=== PATIENT | male | born 1955 | race Caucasian/White ===

== ENCOUNTER 2016-04-30 11:00 | Outpatient (RCR) | payer OTHER | END 2016-05-05 | disposition home or self-care (01) | LOC: M OUTALCOH 11:00 | PROVIDERS: ATTEND Psychiatry & Neurology Psychiatry | DX: F10.10 Alcohol abuse, uncomplicated (principal) ==

== ENCOUNTER 2016-06-01 08:45 | Outpatient (RCR) | payer MEDICARE, OTHER | END 2016-06-02 | LOC: M OUTALCOH 08:45 | PROVIDERS: ATTEND Psychiatry & Neurology Psychiatry | DX: F10.10 Alcohol abuse, uncomplicated (principal) ==

== ENCOUNTER → 2016-07-03 | Outpatient (RCR) | payer OTHER | LOC: M OUTALCOH 06-03 10:49 | PROVIDERS: ATTEND Psychiatry & Neurology Psychiatry | DX: F10.10 Alcohol abuse, uncomplicated (principal) ==

== ENCOUNTER → 2017-06-15 | Outpatient (CLI) | payer MEDICARE, OTHER ==
[2017-06-15 18:16] LABS: HEMATOCRIT 42.3 % (42.0-52.0); HEMOGLOBIN 14.4 g/dl (14.0-18.0); MEAN CORPUSCULAR HEMOGLOBIN 34.5 pg (27.0-33.0); MEAN CORPUSCULAR VOLUME 101.4 fl (80.0-96.0); RED BLOOD COUNT 4.17 10^6/uL (4.30-6.10); RED CELL DISTRIBUTION WIDTH 12.5 % (11.5-14.5); WHITE BLOOD COUNT 4.6 10^3/uL (4.0-10.0)
[2017-06-15 18:20] LABS: VITAMIN B12 LEVEL 580 PG/ML (247-911)
[2017-06-15 18:27] LABS: APPEARANCE, URINE HAZY (CLEAR); BACTERIA, URINE AUTO 2+ (NEGATIVE); BILIRUBIN, URINE AUTO NEGATIVE (NEGATIVE); BLOOD, URINE BLOOD NEGATIVE (NEGATIVE); COLOR, URINE AMBER (YELLOW); GLUCOSE, URINE (UA) AUTO NEGATIVE (NEGATIVE); KETONE, URINE AUTO NEGATIVE (NEGATIVE); LEUKOCYTE ESTERASE, URINE AUTO 3+ (NEGATIVE); MUCUS, URINE MODERATE (NEGATIVE); NITRITE, URINE AUTO NEGATIVE (NEGATIVE); PROTEIN, URINE AUTO 1+ mg/dL (NEGATIVE); RBC, URINE AUTO 2 /HPF (0-3); SPECIFIC GRAVITY URINE AUTO 1.023 (1.002-1.035); SQUAMOUS EPITHELIAL CELL UR AU 0 /HPF (0-6); WBC, URINE AUTO 47 /HPF (0-3)
[2017-06-15 18:34] LABS: ALBUMIN/GLOBULIN RATIO 1.11 (1.00-1.93); ALKALINE PHOSPHATASE 67 U/L (45-117); ALT/SGPT 34 U/L (12-78); ANION GAP 10 MEQ/L (8-16); AST/SGOT 60 U/L (7-37); BLOOD UREA NITROGEN 11 MG/DL (7-18); CALCIUM LEVEL 8.8 MG/DL (8.8-10.2); CARBON DIOXIDE LEVEL 27 MEQ/L (21-32); CHLORIDE LEVEL 105 MEQ/L (98-107); CREATININE FOR GFR 0.97 MG/DL (0.70-1.30); GLOMERULAR FILTRATION RATE > 60.0 (>49); GLUCOSE, FASTING 94 MG/DL (70-100); POTASSIUM SERUM 3.9 MEQ/L (3.5-5.1); SODIUM LEVEL 142 MEQ/L (136-145); TOTAL PROTEIN 7.6 GM/DL (6.4-8.2)
[2017-06-15 19:10] LABS: PLATELET COUNT, AUTOMATED 85 10^3/uL (150-450)
[2017-06-15 19:12] LABS: IMMATURE PLATELET FRACTION % 12.7 % (0.0-10.9)
[2017-06-15 20:01] LABS: FREE T4 1.09 NG/DL (0.76-1.46)
== END ==
LOC: M WUC 11:55
DX: E55.9 Vitamin D deficiency, unspecified (principal); E03.9 Hypothyroidism, unspecified; M86.9 Osteomyelitis, unspecified; I15.8 Other secondary hypertension; R35.1 Nocturia; F10.20 Alcohol dependence, uncomplicated
CPT/HCPCS: 84443

== ENCOUNTER → 2017-12-16 | Outpatient (CLI) | payer MEDICARE ==
[2017-12-16 13:45] LABS: INR 1.19; PROTHROMBIN TIME 15.2 SECONDS (12.1-14.4)
[2017-12-16 14:47] LABS: FREE T4 0.57 NG/DL (0.76-1.46); PROSTATIC SPECIFIC AG MONITOR 0.47 NG/ML (< 4.0)
[2017-12-17 11:50] LABS: HEPATITIS B SURFACE ANTIGEN NEGATIVE (NEGATIVE)
[2017-12-17 12:10] LABS: HEPATITIS C VIRUS ABY INDEX 0.2 INDEX (<0.8)
[2017-12-17 12:11] LABS: HEPATITIS B CORE ANTIBODY IGM NEGATIVE (NEGATIVE)
[2017-12-17 12:12] LABS: HEPATITIS A ANTIBODY IGM NEGATIVE (NEGATIVE)
== END ==
LOC: M LAB 12:23
DX: F10.20 Alcohol dependence, uncomplicated (principal); R94.31 Abnormal electrocardiogram [ECG] [EKG]; I15.8 Other secondary hypertension; Z79.01 Long term (current) use of anticoagulants
CPT/HCPCS: 93005

== ENCOUNTER → 2018-02-15 | Outpatient (CLI) | payer MEDICARE ==
[2018-02-15 13:16] LABS: FREE T4 1.19 NG/DL (0.76-1.46)
== END ==
LOC: M LAB 11:49
DX: M86.9 Osteomyelitis, unspecified (principal)
CPT/HCPCS: 84443

== ENCOUNTER 2018-03-17 10:16 | Day surgery (SDC) | payer MEDICARE ==
[~2018-03-17 10:16] MED LIST: MIDAZOLAM INJ 2 MG/2 ML VIAL (J2250) As Ordered; fentaNYL 100 MCG/2 ML INJECTION (J3010) As Ordered
[2018-03-17] MEDS: TROPICAMIDE 1% OPHTH SOLN 2ML OS (10:40)
[2018-03-17] MEDS: OFLOXACIN 0.3 % (OCUFLOX) OPTH SOL 5ML OS (10:40)
[2018-03-17] MEDS: PHENYLEPHRINE 2.5% OPHTH SOL 2ML OS (10:45)
[2018-03-17] MEDS: PROPARACAINE 0.5% OPHTH SOL 15ML OS (10:45)
[2018-03-17] MEDS: POVIDONE-IODINE 5% OPHTH PREP SOL 30ML As Ordered (11:09)
[2018-03-17] MEDS: LIDOCAINE 0.75%/EPINEPHRINE 0.025% IN BSS 1ML SYR INTRACAMERAL (OR ONLY) As Ordered (11:13)
[2018-03-17] MEDS: BALANCED SALT IRRIGATION SOLUTION 500ML BAG (FOR OR EYE MACHINE) As Ordered (11:14)
[2018-03-17] MEDS: CEFUROXIME 1MG/0.1ML INTRACAMERAL INJ As Ordered (11:19)
[2018-03-17] MEDS: DUOVISC (0.50ML VISCOAT/0.55ML PROVISC) OPHTH KIT As Ordered (11:19)
[2018-03-17] MEDS ORDERED: ONDANSETRON 4MG/2ML VIAL (J2405) IV (11:45)
== END 2018-03-17 11:57 | disposition home or self-care (01) ==
LOC: M SDC 10:16
DX: H25.12 Age-related nuclear cataract, left eye (principal); I10 Essential (primary) hypertension; E03.9 Hypothyroidism, unspecified; K21.9 Gastro-esophageal reflux disease without esophagitis; Z79.899 Other long term (current) drug therapy
CPT/HCPCS: 66984

== ENCOUNTER 2018-03-24 06:48 | Day surgery (SDC) | payer MEDICARE ==
[2018-03-24] MEDS: OFLOXACIN 0.3 % (OCUFLOX) OPTH SOL 5ML OD (07:48)
[2018-03-24] MEDS: PHENYLEPHRINE 2.5% OPHTH SOL 2ML OD (07:48)
[2018-03-24] MEDS: TROPICAMIDE 1% OPHTH SOLN 2ML OD (07:48)
[2018-03-24] MEDS: PROPARACAINE 0.5% OPHTH SOL 15ML OD (07:48)
[2018-03-24] MEDS ORDERED: fentaNYL 100 MCG/2 ML INJECTION (J3010) As Ordered (08:22)
[2018-03-24] MEDS ORDERED: MIDAZOLAM INJ 2 MG/2 ML VIAL (J2250) As Ordered (08:22)
[2018-03-24] MEDS: POVIDONE-IODINE 5% OPHTH PREP SOL 30ML As Ordered (08:36)
[2018-03-24] MEDS: LIDOCAINE 0.75%/EPINEPHRINE 0.025% IN BSS 1ML SYR INTRACAMERAL (OR ONLY) As Ordered (08:38)
[2018-03-24] MEDS: BALANCED SALT IRRIGATION SOLUTION 500ML BAG (FOR OR EYE MACHINE) As Ordered (08:38)
[2018-03-24] MEDS: CEFUROXIME 1MG/0.1ML INTRACAMERAL INJ As Ordered (08:38)
[2018-03-24] MEDS: DUOVISC (0.50ML VISCOAT/0.55ML PROVISC) OPHTH KIT As Ordered (08:38)
== END 2018-03-24 09:40 | disposition home or self-care (01) ==
LOC: M SDC 06:48
DX: H25.11 Age-related nuclear cataract, right eye (principal); I10 Essential (primary) hypertension; E03.9 Hypothyroidism, unspecified; K21.9 Gastro-esophageal reflux disease without esophagitis; Z79.899 Other long term (current) drug therapy
CPT/HCPCS: 66984

== ENCOUNTER → 2018-08-09 | Outpatient (CLI) | payer MEDICARE ==
[~2018-08-09] MED LIST changes: +GABA-843 PO; +LEVO125T4 PO; +LISI10TA4 PO; -MIDAZOLAM INJ 2 MG/2 ML VIAL (J2250) As Ordered; +PEPC1TAB5 PO; -fentaNYL 100 MCG/2 ML INJECTION (J3010) As Ordered
[2018-08-09 16:45] LABS: INR 1.25; PROTHROMBIN TIME 15.9 SECONDS (12.1-14.4)
[2018-08-09 16:47] LABS: APPEARANCE, URINE CLEAR (CLEAR); BACTERIA, URINE AUTO NEGATIVE (NEGATIVE); BILIRUBIN, URINE AUTO NEGATIVE (NEGATIVE); BLOOD, URINE BLOOD NEGATIVE (NEGATIVE); COLOR, URINE AMBER (YELLOW); GLUCOSE, URINE (UA) AUTO NEGATIVE (NEGATIVE); KETONE, URINE AUTO NEGATIVE (NEGATIVE); LEUKOCYTE ESTERASE, URINE AUTO 2+ (NEGATIVE); NITRITE, URINE AUTO NEGATIVE (NEGATIVE); PROTEIN, URINE AUTO NEGATIVE (NEGATIVE); RBC, URINE AUTO 4 /HPF (0-3); SPECIFIC GRAVITY URINE AUTO 1.016 (1.002-1.035); SQUAMOUS EPITHELIAL CELL UR AU 0 /HPF (0-6); URIC ACID CRYSTALS SMALL; WBC, URINE AUTO 21 /HPF (0-3)
[2018-08-09 17:17] LABS: HEMATOCRIT 42.3 % (42.0-52.0); HEMOGLOBIN 14.2 g/dl (13.5-17.5); MEAN CORPUSCULAR HEMOGLOBIN 36.7 pg (27.0-33.0); MEAN CORPUSCULAR HGB CONC 33.6 g/dl (32.0-36.5); MEAN CORPUSCULAR VOLUME 109.3 fl (80.0-96.0); RED BLOOD COUNT 3.87 10^6/uL (4.30-6.10); WHITE BLOOD COUNT 3.7 10^3/uL (4.0-10.0)
[2018-08-09 17:37] LABS: ALBUMIN 3.2 GM/DL (3.2-5.2); ALT/SGPT 81 U/L (12-78); BILIRUBIN,DIRECT 1.2 MG/DL (0.0-0.2); BILIRUBIN,TOTAL 2.5 MG/DL (0.2-1.0); BLOOD UREA NITROGEN 10 MG/DL (7-18); CALCIUM LEVEL 9.5 MG/DL (8.8-10.2); CARBON DIOXIDE LEVEL 33 MEQ/L (21-32); CHLORIDE LEVEL 106 MEQ/L (98-107); CHOLESTEROL LEVEL 159 MG/DL (<200); CHOLESTEROL RISK RATIO 4.076 (<5); CREATININE FOR GFR 0.85 MG/DL (0.70-1.30); GLOMERULAR FILTRATION RATE > 60.0 (>49); GLUCOSE, FASTING 76 MG/DL (70-100); HDL CHOLESTEROL 39 MG/DL (>40); LDL CHOLESTEROL 103 MG/DL (<100); NON-HDL-C 120 MG/DL; POTASSIUM SERUM 4.4 MEQ/L (3.5-5.1); SODIUM LEVEL 142 MEQ/L (136-145); TOTAL PROTEIN 6.5 GM/DL (6.4-8.2); TRIGLYCERIDES LEVEL 84 MG/DL (<150); VITAMIN B12 LEVEL 1251 PG/ML (247-911)
[2018-08-09 18:24] LABS: PLATELET COUNT, AUTOMATED 97 10^3/uL (150-450)
== END ==
LOC: M LAB 15:34
PROVIDERS: ATTEND Internal Medicine
DX: M86.9 Osteomyelitis, unspecified (principal); E66.9 Obesity, unspecified; F10.20 Alcohol dependence, uncomplicated; E03.9 Hypothyroidism, unspecified; E55.9 Vitamin D deficiency, unspecified; R35.1 Nocturia; G25.0 Essential tremor; I15.8 Other secondary hypertension; Z65.8 Other specified problems related to psychosocial circumstances

== ENCOUNTER → 2018-08-15 | Outpatient (CLI) | payer MEDICARE ==
--- NOTE | 2018-08-15 10:17 | REP ---
Abdomen series: Three views. History: Jaundice. Findings: Supine and erect views of the abdomen demonstrate a normal bowel gas pattern with air and stool in a nondistended colon. There is no evidence of large or small bowel dilation. No free air or significant air fluid level is seen. There is respiratory motion unsharpness on the upright view. A rounded opacity is seen on this view in the right upper quadrant which may be a gallstone. Psoas margins and flank stripes are intact. No mass or organomegaly seen. Impression: Possible gallstones. Normal bowel gas pattern. Electronically Signed by Boris Manjarrez MD 08/15/2018 08:08 A
== END ==
LOC: M RAD 07:15
PROVIDERS: ATTEND Internal Medicine
DX: R17 Unspecified jaundice (principal)

== ENCOUNTER → 2018-08-19 | Outpatient (CLI) | payer MEDICARE ==
--- NOTE | 2018-08-19 14:16 | REP ---
LIMITED ABDOMEN ULTRASOUND: 08/19/2018. Clinical history: Jaundice. Chronic ethanol abuse. Findings: No comparison study. Liver shows diffuse increase echogenicity consistent with fatty infiltration. Left lobe is prominent. Slightly lobulated contours suggesting chronic liver disease. No focal hepatic mass nor intrahepatic biliary dilatation. The gallbladder shows echogenic stones with shadowing. Gallbladder wall thickness normal. No pericholecystic fluid. No sonographic George sign. Common duct is 6 mm. In the right hepatic lobe there is a vascular area with branch in the right portal vein draining into the right hepatic vein branch with quite high flow. No definite arterial feeding vessel on these images. In that area of the right lobe. This could be venous to venous malformation. Pancreas is limited due to bowel gas shadowing, that segment seen unremarkable. The right kidney is 13.7 x 7.8 x 7 cm without stone or hydronephrosis. There is no free fluid. Impression: 1. Fatty infiltration liver with some chronic liver disease changes including large right lobe with lobulated liver contour. No discrete mass. 2. Suspected venous to venous malformation in the right hepatic lobe without definite arterial feeder noted in that region. High flow noted on color imaging and Doppler tracing. 3. Some mobile gallstones but no sonographic George sign, bowel wall thickening or pericholecystic fluid. 4. Common duct 6 mm, normal. 5. Pancreas limited evaluation of the right kidney normal. Electronically Signed by Cornel Seay MD 08/19/2018 05:13 P
== END ==
LOC: M RAD 06:43
PROVIDERS: ATTEND Internal Medicine
DX: K76.0 Fatty (change of) liver, not elsewhere classified (principal); K80.20 Calculus of gallbladder without cholecystitis without obstruction

== ENCOUNTER 2019-04-26 22:35 | Inpatient (IN) | payer MEDICARE ==
[~2019-04-26] VITALS: Ht 193 cm; Wt 115.5 kg
[2019-04-26] MEDS ORDERED: ASPIRIN 81 MG CHEW TABLET PO ONE (23:15)
[2019-04-26] MEDS ORDERED: GI COCKTAIL 50ML BTL(HYOSCYAMINE/MAALOX/LIDOCAINE VISCOUS)(1:3:1) PO ONE (23:15)
[2019-04-26 23:18] LABS: BASO # 0.1 10^3/uL (0.0-0.2); BASO % 1.4 % (0.0-1.0); EOS # 0.1 10^3/uL (0.0-0.5); EOS % 1.9 % (0.0-3.0); HEMATOCRIT 32.8 % (42.0-52.0); HEMOGLOBIN 11.7 g/dl (13.5-17.5); LYMPH # 1.3 10^3/uL (1.5-5.0); LYMPH % 18.3 % (24.0-44.0); MEAN CORPUSCULAR HEMOGLOBIN 38.4 pg (27.0-33.0); MEAN CORPUSCULAR HGB CONC 35.7 g/dl (32.0-36.5); MEAN CORPUSCULAR VOLUME 107.5 fl (80.0-96.0); MONO # 0.9 10^3/uL (0.0-0.8); MONO % 11.8 % (0.0-5.0); NEUTROPHILS # 4.8 10^3/uL (1.5-8.5); RED BLOOD COUNT 3.05 10^6/uL (4.30-6.10); WHITE BLOOD COUNT 7.2 10^3/uL (4.0-10.0)
[2019-04-26 23:30] LABS: INR 3.57; PROTHROMBIN TIME 35.7 SECONDS (11.8-14.0)
[2019-04-26 23:38] LABS: ALBUMIN 1.8 GM/DL (3.2-5.2); ALT/SGPT 61 U/L (12-78); BILIRUBIN,TOTAL 13.2 MG/DL (0.2-1.0); BLOOD UREA NITROGEN 4 MG/DL (7-18); CALCIUM LEVEL 8.1 MG/DL (8.8-10.2); CARBON DIOXIDE LEVEL 28 MEQ/L (21-32); CHLORIDE LEVEL 91 MEQ/L (98-107); CK-MB VALUE MASS 3.6 NG/ML (<3.6); CPK CREATINE PHOSPHOKINASE 239 U/L (39-308); CREATININE FOR GFR 1.12 MG/DL (0.70-1.30); ETHYL ALCOHOL (ETHANOL) 0.163 % (0.000-0.010); GLOMERULAR FILTRATION RATE > 60.0 (>49); GLUCOSE, FASTING 119 MG/DL (70-100); LIPASE 157 U/L (73-393); MB/CK RELATIVE INDEX 1.51 (< OR =4); POTASSIUM SERUM 3.1 MEQ/L (3.5-5.1); SODIUM LEVEL 129 MEQ/L (136-145); TROPONIN I < 0.02 NG/ML (< 0.10)
[2019-04-27 00:06] LABS: PLATELET COUNT, AUTOMATED 80 10^3/uL (150-450)
[2019-04-27] MEDS ORDERED: ISOVUE-370 76% 100ML VIAL (Q9967) As Ordered ONE (00:08)
--- NOTE | 2019-04-27 00:44 | REPVR ---
PROCEDURE INFORMATION: Exam: CT Angiography Chest With Contrast Exam date and time: 04/27/2019 12:02 AM Age: 63 years old Clinical indication: Shortness of breath; Additional info: Chest pain TECHNIQUE: Imaging protocol: Computed tomographic angiography of the chest with intravenous contrast. 3D rendering: MIP and/or 3D reconstructed images were created by the technologist. Radiation optimization: All CT scans at this facility use at least one of these dose optimization techniques: automated exposure control; mA and/or kV adjustment per patient size (includes targeted exams where dose is matched to clinical indication); or iterative reconstruction. Contrast material: ISO; Contrast volume: 100 ml; Contrast route: AC; COMPARISON: CR PORTABLE CHEST X-RAY 04/26/2019 11:18 PM FINDINGS: Pulmonary arteries: No focal pulmonary artery filling defect to suggest acute pulmonary embolus. Great vessels off aortic arch: Atherosclerotic calcifications in the coronary vessels. Aorta: Thoracic aorta is tortuous without focal aneurysm or dissection. Lungs: Pulmonary vascular/interstitial pattern does not suggest active pulmonary edema. Discoid scarring or atelectasis in the lateral right middle lobe is present. No convincing evidence of lung mass. Pleural space: No pleural effusion or pneumothorax. Heart: No overt cardiac enlargement or abnormal volume of pericardial fluid. Liver: Cirrhotic changes of the liver with portal hypertension and varices. Gallbladder and bile ducts: Gallstones are present in the gallbladder lumen, incompletely imaged. Lymph nodes: No enlarged mediastinal lymph nodes. Bones/joints: Bony structures show no acute fracture or destructive process. IMPRESSION: 1. No evidence of acute pulmonary embolus. 2. Probable discoid atelectasis or scarring in the right middle lobe. Follow-up CT in 3 months is recommended to document resolution and to exclude an on likely underlying mass. 3. Cholelithiasis. 4. Cirrhosis, portal hypertension and abdominal varices Electronically signed by: Matt Villa On 04/27/2019 00:43:26 AM
--- NOTE | 2019-04-27 00:50 | REPVR ---
PROCEDURE INFORMATION: Exam: CT Abdomen And Pelvis With Contrast Exam date and time: 04/27/2019 12:02 AM Age: 63 years old Clinical indication: Abdominal pain; Generalized; Patient HX: Jaundiced; Additional info: Abd pain, vomiting, elev lfts TECHNIQUE: Imaging protocol: Computed tomography of the abdomen and pelvis with intravenous contrast. Radiation optimization: All CT scans at this facility use at least one of these dose optimization techniques: automated exposure control; mA and/or kV adjustment per patient size (includes targeted exams where dose is matched to clinical indication); or iterative reconstruction. Contrast material: ISO; Contrast volume: 100 ml; Contrast route: AC COMPARISON: No relevant prior studies available. FINDINGS: ABDOMEN: Liver appears cirrhotic with nodular contours. No focal lesion. The spleen is normal in size without focal lesion. Portal vein branches enhance normally. Extensive splenic varices are present and there is recanalized paraumbilical vein and there are mesenteric varices as well, suggesting portal hypertension. Pancreas shows no mass or inflammation. Gallbladder lumen contains dependent calculi. No bile duct dilatation or overt gallbladder wall thickening. Adrenal glands show no enlargement and the kidneys show no mass or obstruction. Abdominal aorta is normal in caliber. No enlarged lymph nodes. Small volume of abdominal and pelvic ascites with no organized collection. No pneumoperitoneum or evidence of bowel obstruction. PELVIS: Appendix is not convincingly visualized. No RLQ inflammation. Scattered diverticular changes are present within the colon without focal inflammation. Bladder is unremarkable. Prostate gland demonstrates dystrophic calcifications. Osseous structures are unremarkable aside from lower lumbar spine degenerative disc and facet arthropathy IMPRESSION: Cirrhosis, portal hypertension with varices, and moderate volume ascites. No evidence of biliary dilatation Cholelithiasis without biliary obstruction or evidence of acute cholecystitis No acute bowel abnormality. Colonic diverticular change without active inflammation Electronically signed by: Matt Villa On 04/27/2019 00:50:33 AM
[2019-04-27] MEDS ORDERED: VITMTA PO (01:54)
[2019-04-27] MEDS ORDERED: POTASSIUM CHLORIDE 10 MEQ SR TABLET PO ONE ×2 (02:30→20:00)
[2019-04-27] MEDS ORDERED: FUROSEMIDE 40 MG/4 ML VIAL (J1940) IV ONE (03:15)
[2019-04-27 03:37] LABS: MAGNESIUM LEVEL 1.6 MG/DL (1.8-2.4)
[2019-04-27 04:32] LABS: CPK CREATINE PHOSPHOKINASE 202 U/L (39-308); MB/CK RELATIVE INDEX 1.49 (< OR =4); TROPONIN I < 0.02 NG/ML (< 0.10)
[2019-04-27] MEDS: MAG SULF 1GM/100ML (MAG RUN) 1 GM in IV 1 EA IV SCH ×2 (04:55→06:03)
--- NOTE | 2019-04-27 05:46 | HPEPDOC ---
[facility] Medical History & Physical Date of Admission Apr 27, 2019 Date of Service: Apr 27, 2019 History and Physical CHIEF COMPLAINT: Chest pain HISTORY OF PRESENT ILLNESS: This is a 63-year-old male presenting to the ER for chest pain for the last 2 days. He has noticed a heavy pressure-like sensation midsternal has been going on and off for the last 2 days. He endorses associated nausea vomiting symptoms with this chest pain as well. He denies vomiting been bloody or bilious. His has noticed in the last 2 weeks his skin has appeared more yellow in color. He endorses greater than 100 pound weight loss in the last 6 months possibly. He states he has a history of fatty liver in the past and never has been diagnosed with cirrhosis. He denies having any fevers, chills, night sweats. He endorses drinking 5-6 beers and his last beer was prior to presentation in the ER. The only reason he is currently here is because his significant other told him he had to be evaluated. He admits to constipation which he does not take any medication for. In the ER vitals appear stable EKG showed poor R-wave progression and low voltages with a read of atrial fibrillation. Patient denies having a history of atrial fibrillation or any cardiac history besides hypertension. CT of the abdomen shows cirrhosis and ascites. Hospital was then called for admission. Patient denies weight loss, hair loss, headache, visual changes, shortness of breath, cough, diarrhea, abdominal pain, muscle aches, worsening arthritis, change in mood PAST MEDICAL HISTORY: 1. Fatty liver 2. Hypertension 3. GERD 4 Hypothyroid HOME MEDICATIONS: Please see below. ALLERGIES: Please see below SOCIAL HISTORY: Lives with: Significant other Roxanna in [place], Tobacco use: Denies. ETOH: 5-6 beers daily, Illicit drug use: Denies, CODE STATUS: Full code REVIEW OF SYSTEMS: 10 systems reviewed and negative other than HPI PHYSICAL EXAMINATION: VITAL SIGNS: See Below GENERAL: Pleasant 63-year-old male laying in bed awake alert oriented speaking in complete sentences no acute distress, no slurring of speech appears jaundice HEENT: Atraumatic, normocephalic, sclera icterus bilaterally, Moist mucous membranes with slight JVD CARDIOVASCULAR: S1 S2 regular no additional heart sounds appreciated. RESPIRATORY: Clear to auscultation bilaterally. ABDOMINAL: Bowel sounds hypoactive abdomen soft and nontender. Positive fluid wave, dullness in percussion, no visable EXTREMITIES: No clubbing cyanosis . 2+ pitting edema upto knee bilaterally NEUROLOGICAL: Spontaneously moves all 4 extremities cranial 2 through 12 grossly intact no gross focal deficits appreciated. No asterixis PSYCHOLOGICAL: Appropriate LABORATORY DATA: See below. MICROBIOLOGY: Please see below. IMAGIN04/26/2027 Chest x-rayofficial read currently pending 04/27/2019 CT angios of chest -1. No evidence of acute pulmonary embolus. 2. Probable discoid atelectasis or scarring in the right middle lobe. Follow-up CT in 3 months is recommended to document resolution and to exclude an on likely underlying mass. 3. Cholelithiasis. 4. Cirrhosis, portal hypertension and abdominal varices CT abdominal/pelvis with IV contrast only Cirrhosis, portal hypertension with varices, and moderate volume ascites. No evidence of biliary dilatation Cholelithiasis without biliary obstruction or evidence of acute cholecystitis No acute bowel abnormality. Colonic diverticular change without active inflammation ASSESSMENT & PLAN: This is a 63-year-old male who presented to the ER for chest pain for the last 2 days. PROBLEMS: 1. Chest pain. Abnormal EKG in the ER. Troponins 1 negative. Because of the poor voltages and R-wave progression well get a repeat EKG. He does have occ asional PVCs even after potassium supplementation. Therefore we will recheck a mag, trend troponin and obtain an echo to assess if there is wall motion abnormality as well as the ejection fraction. 2. Abnormal EKG. Inconsistent read on the EKG in the ER. There is poor voltages and poor R-wave progression in the precordial leads. As well as inconsistent P waves from his friend has A. fib. We will repeat the EKG this evening. Is continue to be in atrial fibrillation than patient does not need anticoagulation for his INR levels are elevated due to decompressed heart failure 3. 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 Hepatitis panel in the past with negative. Current drinks 5-6 cans of beer daily. His last drink was earlier this afternoon, therefore not a candidate for liver transplant. Currently has ascites, engorged veins. Total ines high at 13, INR elevated at 3.5 7, Albumin low 1.8, MELD score 33, 2 month mortality 52.6:%, Child-Lynn Score >11 points; Class C, life expentancy 1-3 years. Jean-Pierre Discriminabt Function for alchololic Hepatitis. >113; would benefit from prednisolone 40mg for 28 days then 16 day taper. At this current time, mentating appropriately and his underlying liver cirrhosis is partially compensated once problem 1 is addressed then can consider starting the prednisolone unless there is a change in mental status further decompensates then can consider starting this earlier. For his ascites will give a one-time dose of Lasix 40 mg tonight in the morning will start Aldactone 25 mg. Can titrate up to 100 mg of t Aldactone and 40 mg lasix daily. Supplement all meals with ensure enlive, 4. Abnormal chest CT. Probable discoid atelectasis or scarring in the right middle lobe. Follow-up CT in 3 months recommended to document resolution and to exclude an on likely underlying mass. Which patient can do outpatient. 5. Alcohol abuse. CIWA protocol with Ativan, for its preferred with patients with severe liver disease. 6. Hypothyroidism. Continue with levothyroxine as prescribed. 7. Acid reflux. Continue with home Pepcid. 8. Hypertension. Continue with 9. Macrocytic Anemia. MCV 107.5 likely secondary to alcohol abuse. B12 and folic acid supplement provided. DVT PROPHYLAXIS:TEDs and Sequential (due to elevated INR) DISPOSITION: Inpatient at least to midnight to PCU with remote telemetry Vital Signs Vital Signs Date Time Temp Pulse Resp B/P (MAP) Pulse Ox O2 Delivery O2 Flow Rate FiO2 04/27/19 01:30 131/63 (85) 04/27/19 01:20 77 99 04/26/19 22:48 97.8 18 Room Air Laboratory Data Labs 24H Laboratory Tests 2 04/26/19 23:02: Immature Granulocyte % (Auto) 0.6, Neutrophils (%) (Auto) 66.0, Lymphocytes (%) (Auto) 18.3L, Monocytes (%) (Auto) 11.8H, Eosinophils (%) (Auto) 1.9, Basophils (%) (Auto) 1.4H, Neutrophils # (Auto) 4.8, Lymphocytes # (Auto) 1.3L, Monocytes # (Auto) 0.9H, Eosinophils # (Auto) 0.1, Basophils # (Auto) 0.1, Nucleated Red Blood Cells % (auto) 0.0, Immature Platelet Fraction 8.6, Prothrombin Time 35.7H, Prothromb Time International Ratio 3.57, Anion Gap 10, Glomerular Filtration Rate > 60.0, Calcium Level 8.1L, Magnesium Level 1.6L, Total Bilirubin 13.2H, Direct Bilirubin 9.0H, Aspartate Amino Transf (AST/SGOT) 203H, Alanine Aminotransferase (ALT/SGPT) 61, Alkaline Phosphatase 103, Total Creatine Kinase 239, Creatine Kinase MB 3.6, Creatine Kinase MB Relative Index 1.51, Troponin I < 0.02, Total Protein 6.0L, Albumin 1.8L, Albumin/Globulin Ratio 0.43L, Lipase 157, Ethyl Alcohol Level 0.163H 04/27/19 03:49: Total Creatine Kinase 202, Creatine Kinase MB 3.0, Creatine Kinase MB Relative Index 1.49, Troponin I < 0.02 CBC/BMP Laboratory Tests 04/26/19 23:02 Home Medications Scheduled Famotidine (Pepcid) 20 Mg Tab, 20 MG PO DAILY Gabapentin (Gabapentin) 300 Mg Cap, 600 MG PO DAILY Levothyroxine Sodium (Levothyroxine Sodium) 125 Mcg Tab, 125 MCG PO DAILY Lisinopril (Lisinopril) 10 Mg Tab, 10 MG PO DAILY Multivitamins (Thera M Plus Tablet) 1 Each Tablet, 1 TAB PO DAILY Allergies Coded Allergies: No Known Allergies (Unverified , 03/24/18) GME ATTESTATION My faculty preceptor for this patient encounter was physically present during the encounter and was fully available. All aspects of the patient interview, examination, medical decision making process, and medical care plan development were reviewed and approved by the faculty preceptor. The faculty preceptor is aware and concurs with the plan as stated in the body of this note and will attest to such by his/her cosignature. ATTENDING NOTE Mr. 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 [place] who unfortunately has struggled with alcohol use disorder for many years reporting up to 15 beers per day from when "The bowser is right" is on television until the end of the "evening news." His last known hepatology history is of fatty liver disease as noted on the last [facility] abdominal ultrasound and as reported by the patient as well but today he presented with acute epigastric chest pain that lasted more than 2 hours and while in the ED as part of his work up had a CT A/P that noted a cirrhotic liver with moderate ascites and mesenteric and splenic varices with portal hypertension. Most pertinent on his presentation was yoana jaundice that he reports his significant other noted since 2 weeks ago, and he reported noted low extremity swelling since then as well but developed the epigastric chest louise/pressure that felt like an elephant was sitting on his chest a few days ago. While in the ED, his work up was notable for significant hepatocellular injury with AST>ALT transaminitis with hyperbilirubinemia to 13.2, hyponatremia, hypokalemia, hepatic synthetic dysfunction with INR 3.57 with mild anemia to 11.7/32.8 and thrombocytopenia to 80 with a normal lipase. It is evident that Mr. 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 At this time, we will 1. begin some diuresis with 40 IV lasix, 2. begin low dose aldactone 3. order an echo 4. begin the CIWA protocol for potential withdrawal and credit counselor him to discontinue alcohol consumption completely as his prognosis. I saw Mr. Madrid with Dr. Rahman and I agree with her assessment and current plan. LORNA RAHMAN DO Apr 27, 2019 05:46 OSCAR LEZAMA MD Apr 27, 2019 06:30
--- NOTE | 2019-04-27 05:47 | ECGEPIP ---
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
[2019-04-27] MEDS: LEVOTHYROXINE 125MCG TABLET (0.125MG) PO SCH (06:00)
--- NOTE | 2019-04-27 07:30 | REP ---
Portable chest, 11:19 p.m., single AP view with the patient upright: There are no comparisons. The lung lee are clear. The cardiac size is normal. The zach, mediastinum, and skeletal structures are unremarkable. The right hemidiaphragm is elevated. Impression: Elevated right hemidiaphragm, otherwise, negative portable chest. Electronically Signed by Power Quinn MD 04/27/2019 07:21 A
--- NOTE | 2019-04-27 07:41 | ECGEPIP ---
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
[2019-04-27 08:17] LABS: HEMATOCRIT 30.4 % (42.0-52.0); HEMOGLOBIN 11.1 g/dl (13.5-17.5); MEAN CORPUSCULAR HEMOGLOBIN 38.8 pg (27.0-33.0); MEAN CORPUSCULAR HGB CONC 36.5 g/dl (32.0-36.5); MEAN CORPUSCULAR VOLUME 106.3 fl (80.0-96.0); RED BLOOD COUNT 2.86 10^6/uL (4.30-6.10); WHITE BLOOD COUNT 5.2 10^3/uL (4.0-10.0)
[2019-04-27 08:18] LABS: PLATELET COUNT, AUTOMATED 61 10^3/uL (150-450)
[2019-04-27 08:38] LABS: BLOOD UREA NITROGEN 4 MG/DL (7-18); CALCIUM LEVEL 7.9 MG/DL (8.8-10.2); CARBON DIOXIDE LEVEL 26 MEQ/L (21-32); CHLORIDE LEVEL 92 MEQ/L (98-107); CREATININE FOR GFR 0.87 MG/DL (0.70-1.30); GLOMERULAR FILTRATION RATE > 60.0 (>49); GLUCOSE, FASTING 104 MG/DL (70-100); INR 3.63; MAGNESIUM LEVEL 1.9 MG/DL (1.8-2.4); PROTHROMBIN TIME 36.2 SECONDS (11.8-14.0); SODIUM LEVEL 128 MEQ/L (136-145)
[2019-04-27] MEDS: MOM 30ML SUSPENSION UDC PO SCH (10:15)
[2019-04-27] MEDS: MULTIVITAMINS/MINERALS THERAP 1 TAB PO SCH (10:15)
[2019-04-27] MEDS: FOLIC ACID 1 MG TAB PO SCH (10:16)
[2019-04-27] MEDS: THIAMINE 100 MG TAB PO SCH ×2 (10:16→20:12)
[2019-04-27] MEDS: GABAPENTIN 300 MG CAP PO SCH (10:16)
[2019-04-27] MEDS: SENOKOT S TAB PO SCH ×2 (10:16→20:13)
[2019-04-27] MEDS: FAMOTIDINE 20 MG TAB PO SCH (10:16)
[2019-04-27] MEDS: lisinopriL 10 MG TAB PO SCH (10:24)
[2019-04-27 10:50] LABS: CK-MB VALUE MASS 2.9 NG/ML (<3.6); MB/CK RELATIVE INDEX 1.49 (< OR =4); TROPONIN I 0.02 NG/ML (< 0.10)
[2019-04-27] MEDS: SPIRONOLACTONE 25 MG TAB PO SCH (11:16)
[2019-04-27 14:18] VITALS: BP 129/62
[2019-04-27] MEDS ORDERED: SLF 3 ML SYR IV PRN (14:45)
[2019-04-27 15:00] VITALS: BP 129/62
[2019-04-27 17:39] VITALS: BP 132/70
[2019-04-27] MEDS: LORazepam 2 MG TAB PO PRN (17:41)
[2019-04-27 20:00] VITALS: BP 138/69
[2019-04-27] MEDS: SLF 3 ML SYR IV SCH (20:13)
[2019-04-27 23:59] VITALS: BP 144/66
[2019-04-28] VITALS (7 sets, daily range): BP systolic 109–142; BP diastolic 58–76
[2019-04-28 05:15] LABS: HEMATOCRIT 29.7 % (42.0-52.0); HEMOGLOBIN 10.7 g/dl (13.5-17.5); MEAN CORPUSCULAR HEMOGLOBIN 38.1 pg (27.0-33.0); MEAN CORPUSCULAR VOLUME 105.7 fl (80.0-96.0); RED BLOOD COUNT 2.81 10^6/uL (4.30-6.10); WHITE BLOOD COUNT 5.4 10^3/uL (4.0-10.0)
[2019-04-28 05:20] LABS: PLATELET COUNT, AUTOMATED 63 10^3/uL (150-450)
[2019-04-28 05:25] LABS: INR 3.51; PROTHROMBIN TIME 35.2 SECONDS (11.8-14.0)
[2019-04-28 05:43] LABS: BLOOD UREA NITROGEN 5 MG/DL (7-18); CALCIUM LEVEL 8.2 MG/DL (8.8-10.2); CARBON DIOXIDE LEVEL 28 MEQ/L (21-32); CHLORIDE LEVEL 92 MEQ/L (98-107); CREATININE FOR GFR 0.97 MG/DL (0.70-1.30); GLOMERULAR FILTRATION RATE > 60.0 (>49); GLUCOSE, FASTING 94 MG/DL (70-100); MAGNESIUM LEVEL 1.8 MG/DL (1.8-2.4); POTASSIUM SERUM 3.8 MEQ/L (3.5-5.1); SODIUM LEVEL 128 MEQ/L (136-145)
[2019-04-28] MEDS: LEVOTHYROXINE 125MCG TABLET (0.125MG) PO SCH (05:45)
[2019-04-28] MEDS: SLF 3 ML SYR IV SCH ×3 (05:46→21:52)
[2019-04-28] MEDS: FOLIC ACID 1 MG TAB PO SCH (09:48)
[2019-04-28] MEDS: SENOKOT S TAB PO SCH ×2 (09:48→21:51)
[2019-04-28] MEDS: lisinopriL 10 MG TAB PO SCH (09:48)
[2019-04-28] MEDS: THIAMINE 100 MG TAB PO SCH ×2 (09:48→21:51)
[2019-04-28] MEDS: GABAPENTIN 300 MG CAP PO SCH (09:48)
[2019-04-28] MEDS: MULTIVITAMINS/MINERALS THERAP 1 TAB PO SCH (09:48)
[2019-04-28] MEDS: FAMOTIDINE 20 MG TAB PO SCH (09:48)
[2019-04-28] MEDS: SPIRONOLACTONE 25 MG TAB PO SCH (09:49)
[2019-04-28] MEDS: MOM 30ML SUSPENSION UDC PO SCH (09:49)
--- NOTE | 2019-04-28 14:32 | IPNPDOC ---
Text Note Date of Service The patient was seen on 04/28/19. NOTE SUBJECTIVE The patient continues to at times be somewhat lethargic and confused. He is also quite jaundiced. His is at bedside. The patient does not clearly understand the mechanism of his liver disease; per his this is all related to end- stage alcoholic liver disease. OBJECTIVE Please see vital signs below Physical exam: HEENT: Neck is supple with no adenopathy or thyromegaly, scleral icterus and scleral injection present, also plethoric complexion Cardiovascular: Regular rate and rhythm with a normal S1 and S2 and no appreciable murmur or bruit. Lungs: Clear to auscultation. Abdomen: Soft, mild epigastric tenderness, nondistended, no fluid wave consistent with ascites. Extremities: At most 1+ pitting edema to his lower legs. Neuro: Patient occasionally exhibits tremor but no asterixis, he is ambulatory with assistance and supervision, patient does have cognition and memory deficits ASSESSMENT/PLAN 1. Noncardiac chest pain. Patient's chest pain is resolved. Chest pain complaints. Has not recurred. He has been ruled out for acute coronary syndrome by enzymes and by EKGs. 2. End-stage liver disease. Patient has alcoholic liver disease, which per the has accelerated over the past 7 months. He has hyperbilirubinemia, severe jaundice, coagulopathy, thrombocytopenia, encephalopathy, and signs of portal hypertension. Cirrhosis is noted on imaging studies. The patient has a MELD score of 33. Two month mortality is 52.6% with life expectancy of 1 - 3 years. The patient is still at times an active drinker; he is an unlikely liver transplant candidate. Medical management will include spironolactone and Lasix and beta serg as he can tolerate. Would recommend lactulose or rifaximin as needed for any encephalopathy. 3. Palliative care. plans to take him home to care for him. She has taken care of other family members with end-stage liver disease. He can likely be discharged to home after a home safety eval. The states she is familiar with hospice services as well. VS,Fishbone, I+O VS, Fishbone, I+O Laboratory Tests 04/28/19 04:55 Vital Signs Date Time Temp Pulse Resp B/P (MAP) Pulse Ox O2 Delivery O2 Flow Rate FiO2 04/28/19 13:26 86 140/76 04/28/19 12:00 97.9 20 96 04/28/19 04:00 Room Air I&O- Last 24 Hours up to 6 AM 04/28/19 06:00 Intake Total 350 ml Output Total 200 ml Balance 150 ml PATTI MULLINS MD Apr 28, 2019 14:32
[2019-04-28] MEDS ORDERED: LACTULOSE 20 GM/30 ML SYRUP UD PO ONE (21:15)
[2019-04-29] VITALS: BP 130/68
[2019-04-29 00:10] VITALS: BP 128/63
[2019-04-29 04:00] VITALS: BP 130/63
[2019-04-29] MEDS: LEVOTHYROXINE 125MCG TABLET (0.125MG) PO SCH (05:31)
[2019-04-29] MEDS: SLF 3 ML SYR IV SCH ×3 (05:32→20:30)
[2019-04-29 06:00] VITALS: BP 129/66
[2019-04-29 06:28] LABS: HEMATOCRIT 31.8 % (42.0-52.0); HEMOGLOBIN 11.4 g/dl (13.5-17.5); MEAN CORPUSCULAR HEMOGLOBIN 38.1 pg (27.0-33.0); MEAN CORPUSCULAR HGB CONC 35.8 g/dl (32.0-36.5); MEAN CORPUSCULAR VOLUME 106.4 fl (80.0-96.0); RED BLOOD COUNT 2.99 10^6/uL (4.30-6.10); WHITE BLOOD COUNT 6.3 10^3/uL (4.0-10.0)
[2019-04-29 06:43] LABS: PLATELET COUNT, AUTOMATED 64 10^3/uL (150-450)
[2019-04-29 06:48] LABS: BLOOD UREA NITROGEN 8 MG/DL (7-18); CARBON DIOXIDE LEVEL 31 MEQ/L (21-32); CHLORIDE LEVEL 91 MEQ/L (98-107); CREATININE FOR GFR 1.11 MG/DL (0.70-1.30); GLOMERULAR FILTRATION RATE > 60.0 (>49); GLUCOSE, FASTING 114 MG/DL (70-100); MAGNESIUM LEVEL 1.8 MG/DL (1.8-2.4); POTASSIUM SERUM 3.9 MEQ/L (3.5-5.1); SODIUM LEVEL 128 MEQ/L (136-145)
[2019-04-29 06:52] LABS: INR 3.53; PROTHROMBIN TIME 35.4 SECONDS (11.8-14.0)
--- NOTE | 2019-04-29 07:50 | ECHO ---
DATE OF PROCEDURE: 04/27/2019 DATE OF : 1955 AGE: 63 REFERRING PROVIDER: Dr. Aarti Huston PATIENT LOCATION: Room 3220 REASON FOR THE STUDY: Chest pain, abnormal EKG. 2-D MEASUREMENTS: IVS: 1.2 cm LV: 4.8 cm LVPW: 1.3 cm LA: 4.8 cm Aorta: 3.7 cm DOPPLER MEASUREMENTS: Peak velocity across the aortic valve: 1.3 m/sec Peak velocity across the LVOT: 0.99 m/sec Mitral E: 0.73, Mitral A: 0.55 with a ratio of 1.3 Maximum tricuspid valve velocity: 2.6 m/sec 2-D COMMENTS: 1. Normal left ventricular size, wall thickness, and normal global left ventricular systolic function. The estimated ventricular systolic ejection fraction is 60-65%. 2. Mildly enlarged left atrium at 4.8 cm. Normal right atrium and right ventricle. 3. The atrial septum appeared to be normal without evidence of defect or shunt. 4. Borderline enlarged aortic root at 3.7 cm. 5. Trace pericardial effusion noted, no evidence of cardiac tamponade. 6. Mildly calcified aortic valve with normal leaflet excursion. Mildly calcified mitral annulus with normal anterior mitral valve leaflet motion. Normal tricuspid valve. The pulmonic valve and proximal pulmonary artery branches were not well visualized. Calcified papillary muscle also noted. 7. The inferior vena cava was not well visualized. DOPPLER: Only mild tricuspid regurgitation detected. The calculated pulmonary artery systolic pressure varies between 30-40 mmHg. Assessment of the left ventricular diastolic function appeared to be normal. IMPRESSION: 1. Normal global left ventricular systolic and diastolic function. 2. Aortic valve sclerosis without stenosis or aortic radiation. 3. Isolated mitral annulus calcification without evidence of mitral regurgitation or mitral stenosis. 4. Mild tricuspid regurgitation with mild pulmonary hypertension. 5. Trace pericardial effusion, no evidence of cardiac tamponade. 6. Calcified papillary muscle noted, benign finding. 7. The pulmonic valve and proximal pulmonary artery branches were not well visualized. MTDD
--- NOTE | 2019-04-29 10:25 | IPN ---
DATE: 04/29/2019 Sumanth is seen on [facility]. He on hospitalist service. He has end-stage liver disease from alcoholic cirrhosis. Chart is reviewed and shows that on 08/2018 he had elevated INR and beginning of hyperbilirubinemia. Does not look like he has had any medical care. He presents with decompensated liver disease, elevated ammonia, INR of 3.5, bilirubin of 13. Physical therapy is seeing him. Recommends wheelchair, bedside commode. Family is considering hospice care. No family members present during rounds. PHYSICAL EXAMINATION: Afebrile. Vital signs stable. He is alert, conversant. He is a little confused. He has asterixis on exam. Deeply jaundiced. Lungs clear. Heart: Regular rhythm. Abdomen: Soft, nontender. Extremities: Trace peripheral edema. LABS: Sodium is stable 128. Ammonia was 54. White count 6.3, hemoglobin 11.4, platelets 64. INR 3.5. We are apparently checking this daily. It has been 3.5 every day. IMPRESSION: 1. End-stage liver disease. Poor prognosis. I would like to talk to the family. I think he would be appropriate candidate for Hospice care. Asked the nurses to let me know when the family comes in and we will have some discussions about this. He is currently FULL CODE and I think a palliative approach would be in order. 2. Alcoholic liver disease with elevated blood alcohol on admission. He is on clinical institute withdrawal assessment (CIWA) protocol, which we will continue. 3. Hypothyroidism. Continue current dose of levothyroxine. 4. Hepatic encephalopathy. Lactulose ordered.
--- NOTE | 2019-04-29 10:28 | IPN ---
DATE: 04/29/2019 I met with and had extensive conversations with Sumanth's , healthcare proxy, Roxanna. She says that he has had significant decline in function over the last few months becoming increasingly cephalopathic. He is unable to feed himself anymore. She cannot take care of him at home. We clarified code status, and after discussion, she filled out a medical orders for life-sustaining treatment (MOLST) form with me. He is now comfort measures. DO NOT RESUSCITATE, DO NOT INTUBATE, no tube feedings IV fluid or readmissions to the hospital. We will consult hospice. His would like him admitted to hospice house. She cannot take care of him at home. Will discontinue lab work but will continue vital signs and nursing.
[2019-04-29] MEDS: MOM 30ML SUSPENSION UDC PO SCH (11:23)
[2019-04-29] MEDS: THIAMINE 100 MG TAB PO SCH ×2 (11:24→20:30)
[2019-04-29] MEDS: LACTULOSE 20 GM/30 ML SYRUP UD PO SCH ×2 (11:24→20:30)
[2019-04-29] MEDS: GABAPENTIN 300 MG CAP PO SCH (11:24)
[2019-04-29] MEDS: SENOKOT S TAB PO SCH ×2 (11:24→20:30)
[2019-04-29] MEDS: MULTIVITAMINS/MINERALS THERAP 1 TAB PO SCH (11:24)
[2019-04-29] MEDS: SPIRONOLACTONE 25 MG TAB PO SCH (11:24)
[2019-04-29] MEDS: FAMOTIDINE 20 MG TAB PO SCH (11:24)
[2019-04-29 11:25] VITALS: BP 129/66
[2019-04-29] MEDS: lisinopriL 10 MG TAB PO SCH (11:25)
[2019-04-29] MEDS: FOLIC ACID 1 MG TAB PO SCH (11:25)
[2019-04-30] MEDS ORDERED: ONDANSETRON 4MG/2ML VIAL (J2405) IV PRN (03:45)
[2019-04-30] MEDS: LEVOTHYROXINE 125MCG TABLET (0.125MG) PO SCH (05:41)
[2019-04-30] MEDS: SLF 3 ML SYR IV SCH ×3 (05:43→20:43)
[2019-04-30 06:00] VITALS: BP 127/67
[2019-04-30] MEDS: SENOKOT S TAB PO SCH ×2 (08:25→20:43)
[2019-04-30] MEDS: MOM 30ML SUSPENSION UDC PO SCH (08:25)
[2019-04-30] MEDS: LACTULOSE 20 GM/30 ML SYRUP UD PO SCH ×2 (08:33→20:43)
[2019-04-30] MEDS: FAMOTIDINE 20 MG TAB PO SCH (08:33)
[2019-04-30] MEDS: MULTIVITAMINS/MINERALS THERAP 1 TAB PO SCH (08:33)
[2019-04-30] MEDS: GABAPENTIN 300 MG CAP PO SCH (08:33)
[2019-04-30] MEDS: SPIRONOLACTONE 25 MG TAB PO SCH (08:33)
[2019-04-30] MEDS: FOLIC ACID 1 MG TAB PO SCH (08:39)
[2019-04-30] MEDS: lisinopriL 10 MG TAB PO SCH (08:39)
[2019-04-30] MEDS ORDERED: ACETAMINOPHEN TAB 650MG DOSE (2X325MG) PO PRN (13:00)
--- NOTE | 2019-04-30 14:17 | IPN ---
DATE: 04/30/2019 Sumanth is on comfort measures end-stage liver disease. Mental status is as it was yesterday. PHYSICAL EXAM: Afebrile. Vital signs stable. Moves arms with equal strength. He still has some asterixis. He thinks he is in [place]. He does not know the month or year. IMPRESSION: End-stage liver disease, hepatic encephalopathy. PLAN: Waiting for hospice to see him. would like hospice residence.
[2019-05-01] MEDS: LEVOTHYROXINE 125MCG TABLET (0.125MG) PO SCH (05:48)
[2019-05-01] MEDS: SLF 3 ML SYR IV SCH (05:48)
[2019-05-01] MEDS: SENOKOT S TAB PO SCH ×2 (09:00→21:05)
[2019-05-01] MEDS: MOM 30ML SUSPENSION UDC PO SCH (09:00)
--- NOTE | 2019-05-01 09:39 | IPN ---
DATE: 05/01/2019 Sumanth was seen today. He is on comfort measures only status, waiting for hospice to see him today. I spoke to his significant other, Roxanna Maria, again today. We have had several visits. She is waiting to meet with hospice. His comfort needs are met. PHYSICAL EXAMINATION: Afebrile. 127/67. He has asterixis. He is more alert today. LUNGS: Clear. HEART: Regular rhythm. ABDOMEN: Soft, nontender. No ascites. IMPRESSION: 1. End stage liver disease. PLAN: Discharge to hospice house residence. They should be meeting with them today. He is DO NOT RESUSCITATE, DO NOT INTUBATE, comfort measures with no laboratories, no imaging.
[2019-05-01] MEDS: LACTULOSE 20 GM/30 ML SYRUP UD PO SCH ×2 (11:03→21:05)
[2019-05-01] MEDS: SPIRONOLACTONE 25 MG TAB PO SCH (11:03)
[2019-05-01] MEDS: FAMOTIDINE 20 MG TAB PO SCH (11:03)
[2019-05-01] MEDS: FOLIC ACID 1 MG TAB PO SCH (11:04)
[2019-05-01] MEDS: GABAPENTIN 300 MG CAP PO SCH (11:04)
[2019-05-01] MEDS: lisinopriL 10 MG TAB PO SCH (11:05)
[2019-05-01] MEDS: LORazepam 2 MG TAB PO PRN (11:41)
[2019-05-02 05:20] VITALS: BP 126/69
[2019-05-02 05:35] VITALS: BP 141/73
[2019-05-02] MEDS: LEVOTHYROXINE 125MCG TABLET (0.125MG) PO SCH (06:20)
[2019-05-02] MEDS: MOM 30ML SUSPENSION UDC PO SCH (09:00)
[2019-05-02] MEDS: FAMOTIDINE 20 MG TAB PO SCH (09:00)
[2019-05-02] MEDS: SENOKOT S TAB PO SCH ×2 (09:00→21:00)
[2019-05-02] MEDS: LACTULOSE 20 GM/30 ML SYRUP UD PO SCH ×2 (09:00→21:00)
[2019-05-02] MEDS: GABAPENTIN 300 MG CAP PO SCH (09:00)
[2019-05-02] MEDS: LORazepam 2 MG TAB PO PRN (09:53)
[2019-05-02] MEDS: MORPHINE 10MG/0.5ML ORAL CONCENTRATE SOLUTION U/D SL PRN (12:08)
--- NOTE | 2019-05-02 12:48 | IPNPDOC ---
Subjective Date Seen The patient was seen on 05/02/19. Subjective Chief Complaint/HPI Patient tried to get out of bed with assistance and fell down overnight. at bedside. 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
[2019-05-03] MEDS: SENOKOT S TAB PO SCH (09:00)
--- NOTE | 2019-05-03 10:01 | IPNPDOC ---
Subjective Date Seen The patient was seen on 05/03/19. Subjective Chief Complaint/HPI Sumanth is fine this morning. His is at the bedside. they are pleased he will be discharging today. 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
[2019-05-03] MEDS: LACTULOSE 20 GM/30 ML SYRUP UD PO SCH (10:32)
[2019-05-03] MEDS ORDERED: HYOS125TA PO (10:56)
[2019-05-03] MEDS ORDERED: LORA0.5T5 PO (10:56)
[2019-05-03] MEDS ORDERED: MORP20SO3 PO (10:56)
[2019-05-03] MEDS: MORPHINE 10MG/0.5ML ORAL CONCENTRATE SOLUTION U/D SL PRN (10:57)
--- NOTE | 2019-05-08 10:07 | DSES ---
DATE OF ADMISSION: 04/27/2019 DATE OF DISCHARGE: 05/03/2019 DISCHARGE DIAGNOSES: Are the followin. Acute decompensated alcoholic liver disease with cirrhosis. 2. Chest discomfort. 3. Hypercoagulable state. 4. Hypothyroidism. 5. Chronic alcoholism. CONSULTANTS ON THE CASE: Were Hospice. PROCEDURES PERFORMED DURING THIS HOSPITALIZATION: Were none. DISPOSITION: The patient is discharged home with Hospice. DISCHARGE INSTRUCTIONS: Were none. IMAGING STUDIES: Obtained during the patient's hospitalization consisted of a chest x-ray, CT of the chest with angiography, and CT of the abdomen and pelvis. Please reference individual reports for details. PERTINENT LABORATORIES: Sodium is 128, potassium is 3.9, chloride is 91, bicarbonate is 31, creatinine 1.1, glucose is 114, calcium is 9, magnesium is 1.8, ammonia level is 54, CPK was 194, total bilirubin is 13.2, AST was 203, ALT was 61, direct bilirubin was 9, alkaline phosphatase was 103, albumin was 1.8, lipase 157. INR is 3.57, PT was 35.7. Alcohol level on admission was 0.16. White count 6.3, hemoglobin was 11.4, hematocrit 31.8, platelet counts are 64,000. HOSPITAL COURSE: Mr. Madrid is a 63-year-old gentleman who has history of chronic alcoholism who presented to the hospital with complaints of chest discomfort and jaundice. He was found to have acute decompensated alcoholic liver disease with significantly hypercoagulable state, as well as liver cirrhosis with ascites. The patient had complaints of some chest discomfort. There was concern that he likely could have had some alcohol-induced cardiomyopathy. Left ventricular ejection fraction showed a preserved left ventricular ejection fraction. It was felt that his swelling was due to ascites. He was initially treated with Lasix and placed on Aldactone. However, the patient's mentation and overall condition was poor. His care was assigned to Dr. Lewis, who spoke with the patient's , who felt that the patient would be best served by rolling in of Hospice, as it was unlikely he would quit alcohol use. The patient was seen by Hospice. He was accepted, and he was subsequently discharged to Hospice home for comfort measures only. A total of 30 minutes was spent completing all discharge paperwork. VALDEZ
== END 2019-05-03 12:07 | disposition hospice, inpatient (51) | DRG 433 ==
LOC: M ED 22:35 → M ED INP 04-27 02:03 → M ED 04-27 02:29 → ENRESERV 04-27 13:25 → M PCU 04-27 14:21 → M MSPAV 04-29 00:06
PROVIDERS: ADMIT Internal Medicine; ATTEND Internal Medicine
DX: K70.31 Alcoholic cirrhosis of liver with ascites (principal); J98.11 Atelectasis; G93.40 Encephalopathy, unspecified; K76.6 Portal hypertension; F10.288 Alcohol dependence with other alcohol-induced disorder; E87.1 Hypo-osmolality and hyponatremia; I42.6 Alcoholic cardiomyopathy; K72.90 Hepatic failure, unspecified without coma; I48.91 Unspecified atrial fibrillation; K70.11 Alcoholic hepatitis with ascites; Z66 Do not resuscitate; Z51.5 Encounter for palliative care; K59.00 Constipation, unspecified; R63.4 Abnormal weight loss; K76.0 Fatty (change of) liver, not elsewhere classified; I11.0 Hypertensive heart disease with heart failure; K21.9 Gastro-esophageal reflux disease without esophagitis; E03.9 Hypothyroidism, unspecified; D53.9 Nutritional anemia, unspecified; Z79.899 Other long term (current) drug therapy; R07.89 Other chest pain; D69.6 Thrombocytopenia, unspecified; I86.8 Varicose veins of other specified sites; E87.6 Hypokalemia; I50.9 Heart failure, unspecified